=== PATIENT | female | born 1975 | race African-American/Black ===

== ENCOUNTER 2019-04-19 19:33 | Emergency (ER) | payer MEDICAID ==
[~2019-04-19] VITALS: Ht 170.2 cm; Wt 84.3 kg
[~2019-04-19 19:33] MED LIST: CEPH-569 PO; NEOM14.216 TP
[2019-04-19] MEDS ORDERED: KETOROLAC 60MG/2ML VIAL IM STA (22:32)
[2019-04-19] MEDS ORDERED: AMOXICILLIN/POTASSIUM CLAVULANATE 875/125MG TAB PO ONE (22:45)
[2019-04-19 23:28] VITALS: BP 126/68
== END 2019-04-19 23:29 | disposition home or self-care (01) ==
LOC: ER 19:33
DX: K02.9 Dental caries, unspecified (principal); K04.7 Periapical abscess without sinus
CPT/HCPCS: 96372; 99283; J1885

== ENCOUNTER 2021-08-28 19:49 | Emergency (ER) | payer MEDICAID ==
[~2021-08-28] VITALS: Ht 160 cm; Wt 175.0 kg
[2021-08-28 23:28] LABS: BASOPHILS % 1.4 % (0.0-2.0); EOSINOPHILS % 1.5 % (0.0-5.0); HEMATOCRIT. 27.2 % (36.0-48.0); HEMOGLOBIN. 8.9 g/dL (12.0-16.0); MEAN CORPUSCULAR HEMOGLOBIN 20.7 pg (28.0-32.0); MEAN CORPUSCULAR VOLUME 63.6 fL (81.0-99.0); MEAN PLATELET VOLUME 9.7 fl (7.4-10.4); MONOCYTES % 8.2 % (2.0-8.0); NEUTROPHILS % 56.9 % (40.0-76.0); PLATELET 260 x1000/uL (130-400); RED BLOOD CELL COUNT 4.27 mill/uL (4.2-5.4); RED CELL DISTRIBUTION WIDTH 15.9 % (11.6-14.6)
[2021-08-28 23:41] LABS: CHLORIDE 109 mEq/L (98-107)
[2021-08-29] MEDS ORDERED: FUROSEMIDE 20MG/2ML VIAL IVP NR (00:30)
[2021-08-29 01:00] VITALS: BP 121/75
[2021-08-29 04:33] LABS: PLATELET ESTIMATE NORMAL
== END 2021-08-29 01:24 | disposition home or self-care (01) ==
LOC: ER 19:49
DX: R60.0 Localized edema (principal); R00.1 Bradycardia, unspecified; D64.9 Anemia, unspecified; Z98.890 Other specified postprocedural states
CPT/HCPCS: 36415; 71045; 80053; 81025; 83880; 84443; 84484; 85025; 85379; 93005; 93970; 96374; 99285; J1940